=== PATIENT | female | born 1995 | race Caucasian/White ===

== ENCOUNTER 2020-08-21 07:25 | Emergency (ER) | payer MEDICAID ==
[~2020-08-21] VITALS: Ht 160 cm; Wt 75.0 kg
[2020-08-21] MEDS ORDERED: ACETAMINOPHEN 325MG TABLET PO STA (08:03)
[2020-08-21] MEDS ORDERED: SODIUM CHLORIDE 0.9% 1,000 ML IV ONE (08:15)
[2020-08-21 08:35] LABS: BASOPHILS % 0.9 % (0.0-2.0); EOSINOPHILS % 1.8 % (0.0-5.0); HEMATOCRIT. 37.7 % (36.0-48.0); HEMOGLOBIN. 12.7 g/dL (12.0-16.0); LYMPHOCYTES % 31.5 % (20.0-50.0); MEAN CORPUSCULAR HEMOGLOBIN 27.7 pg (28.0-32.0); MONOCYTES % 4.8 % (2.0-8.0); PLATELET 321 x1000/uL (130-400); RED BLOOD CELL COUNT 4.59 mill/uL (4.2-5.4); RED CELL DISTRIBUTION WIDTH 13.9 % (11.6-14.6)
[2020-08-21 08:41] LABS: CHLORIDE 107 mEq/L (98-107)
[2020-08-21 08:45] LABS: CLARITY URINE CLEAR (CLEAR); COLOR URINE YELLOW (YELLOW); KETONES URINE NEGATIVE (NEGATIVE); LEUKOCYTE ESTERASE URINE TRACE (NEGATIVE); NITRITE URINE NEGATIVE (NEGATIVE); OCCULT BLOOD URINE NEGATIVE (NEGATIVE); PH URINE 6.5 (4.5-8.0); PROTEIN URINE NEGATIVE (NEGATIVE); SPECIFIC GRAVITY URINE 1.016 (1.005-1.030); UROBILINOGEN URINE 0.2 E.U./dL (0.2-1.0)
[2020-08-21 09:08] LABS: CANNABINOID URINE SCREEN NEGATIVE (NEGATIVE); METHADONE URINE SCREEN NEGATIVE (NEGATIVE); OPIATES URINE SCREEN NEGATIVE (NEGATIVE); PHENCYCLIDINE URINE SCREEN NEGATIVE (NEGATIVE)
[2020-08-21 09:09] LABS: *AMPHETAMINES SCREEN URINE NEGATIVE (NEGATIVE); *BARBITURATES SCREEN URINE NEGATIVE (NEGATIVE); *BENZODIAZEPINES SCREEN URINE NEGATIVE (NEGATIVE); *COCAINE SCREEN URINE NEGATIVE (NEGATIVE); HCG SCREEN NEGATIVE
[2020-08-21] MEDS ORDERED: PREDNISONE 20MG TABLET PO SCH (10:00)
[2020-08-21] MEDS ORDERED: IBUPROFEN 600MG TABLET PO SCH (10:00)
[2020-08-21] MEDS ORDERED: CEPHALEXIN 250MG CAPSULE PO SCH (10:00)
[2020-08-21] MEDS ORDERED: ACYCLOVIR 200MG CAPSULE PO ONE (10:15)
[2020-08-21] MEDS ORDERED: CEPH500C2 MT (10:53)
[2020-08-21] MEDS ORDERED: P20 MT (10:53)
[2020-08-21] MEDS ORDERED: ACYC200C MT (10:53)
[2020-08-21] MEDS ORDERED: IBUP-2029 MT (10:53)
[2020-08-21 11:14] VITALS: BP 109/74
== END 2020-08-21 11:28 | disposition home or self-care (01) ==
LOC: ER 07:25
DX: G51.0 Bell's palsy (principal); N39.0 Urinary tract infection, site not specified; Z98.51 Tubal ligation status
CPT/HCPCS: 36415; 70450; 80053; 80305; 81003; 84703; 85025; 93970; 96360; 99285; J7030; J7512; Z7610

== ENCOUNTER 2020-12-24 11:35 | Emergency (ER) | payer MEDICAID ==
[~2020-12-24] VITALS: Ht 152.4 cm; Wt 89.0 kg
[~2020-12-24 11:35] MED LIST: ACYC200C31 MT; CEPH500C2 MT; IBUP-2029 MT; P20 MT
[2020-12-24] MEDS ORDERED: GUAI-741 MT (13:22)
[2020-12-24 13:47] VITALS: BP 121/71
== END 2020-12-24 13:48 | disposition home or self-care (01) ==
LOC: ER 11:35
DX: B34.9 Viral infection, unspecified (principal); J45.909 Unspecified asthma, uncomplicated; Z20.822 Contact with and (suspected) exposure to COVID-19
CPT/HCPCS: 71045; 81025; 99284; C9803; U0003; U0005

== ENCOUNTER 2021-10-26 16:35 | Emergency (ER) | payer MEDICAID ==
[~2021-10-26] VITALS: Ht 160 cm; Wt 82.0 kg
[~2021-10-26 16:35] MED LIST changes: +GUAI-741 MT
[2021-10-26 16:48] VITALS: BP 104/72
== END 2021-10-26 20:58 | disposition left against medical advice (07) ==
LOC: ER 16:35
DX: Z53.21 Procedure and treatment not carried out due to patient leaving prior to being seen by health care provider (principal)

== ENCOUNTER 2022-01-22 09:05 | Emergency (ER) | payer MEDICAID, OTHER ==
[~2022-01-22] VITALS: Ht 167.6 cm; Wt 83.1 kg
[2022-01-22] MEDS ORDERED: IBUPROFEN 600MG TABLET PO ONE (10:45)
[2022-01-22 10:46] VITALS: BP 107/67
[2022-01-22] MEDS ORDERED: BENZ1LOZ73 MT (13:24)
[2022-01-22] MEDS ORDERED: IBUP-2029 MT (13:37)
== END 2022-01-22 13:44 | disposition home or self-care (01) ==
LOC: ER 09:05
DX: J06.9 Acute upper respiratory infection, unspecified (principal); R07.0 Pain in throat; M79.18 Myalgia, other site; R51.9 Headache, unspecified; Z98.51 Tubal ligation status; Z79.899 Other long term (current) drug therapy; Z20.822 Contact with and (suspected) exposure to COVID-19
CPT/HCPCS: 81025; 87070; 87426; 87430; 87804; 99283